=== PATIENT | female | born 1945 | race Caucasian/White ===

== ENCOUNTER → 2023-10-21 | Day surgery (SDC) | payer OTHER ==
[2023-10-20 10:49] LABS: Absolute Basophils 0.1 K/uL (0-0.5); Absolute Eosinophils 0.4 K/uL (0-0.5); Absolute Lymphocytes (CBC) 2.4 K/uL (0.7-4.9); Absolute Monocytes 0.9 K/uL (0.1-1.3); Absolute Neutrophil 4.3 K/uL (1.8-8.0); Eosinophils % 4.5 % (0-4.4); Hematocrit 38.5 % (36.0-45.0); Hemoglobin 12.6 g/dL (12.0-15.0); Lymphocytes % 29.9 % (15.3-44.8); MCH 31.6 pg (27.0-35.0); MCHC 32.8 g/dL (32.0-36.0); MCV 96.3 fL (80-100); MPV 7.7 fL (7.6-11.3); Monocytes % 11.6 % (3.3-12.3); Platelets 229 thou/uL (152-406); Red Cell Distribution Width 13.9 % (12.1-15.2)
[2023-10-20 10:58] LABS: PT Prothrombin Time 10.7 SECONDS (9.4-12.5); PTT, Activated Partial Thromb 29.1 SECONDS (24.3-36.9); Protime INR 0.95
[2023-10-20 11:03] LABS: Anion Gap 6.1 mEq/L (5.0-15.0); Potassium 4.1 mEq/L (3.5-5.1)
--- NOTE | 2023-10-20 11:39 | RAD REPORT ---
EXAM DESCRIPTION: [facility] Single [facility]10/20/2023 11:12 am CLINICAL HISTORY: PRE-OP. Hypertension COMPARISON: CHEST SINGLE VIEW dated 01/13/2014 TECHNIQUE: Portable AP view of the chest. FINDINGS: The lungs are clear. No pneumothorax or effusion. The cardiomediastinal contours are unre markable. IMPRESSION: No acute cardiopulmonary process.
[~2023-10-21] MED LIST: FENTANYL CITR 100 MCG/2 ML ONE; HEPA 1000U/500MLS 2,000 UNIT/1,000 ML BAG IV ONE; LIDOCAINE 1% 20 ML MDV ONE; MIDAZOLAM HCL 2 MG/2 ML INJ ONE; NA CHLORIDE 0.9% 500 ML ONE
[2023-10-21 12:03] VITALS: TEMP 97.5
[2023-10-21 17:32] VITALS: BP 131/53; O2SAT 96
--- NOTE | 2023-10-22 01:26 | OP ---
Date of Procedure: 10/21/2023 Surgeon: JEAN GONZALEZ Procedure Performed: Selective bilateral carotid angiogram. Indication: Carotid stenosis. Access: Right common femoral artery 4-Macanese, closed with manual pressure. Complications: None. Bleeding: Less than 50 mL. Anesthesia: Total sedation time was 45 minutes, used fentanyl and Versed. Description Of Procedure: After risks, benefits, and alternatives were explained, the patient agreed to the procedure and signed informed consent. The patient was brought into cardiac catheterization laboratory, prepped and draped in usual sterile fashion. Then, I accessed right common femoral arter y using micropuncture kit, ultrasound guidance, fluoroscopy, placed 4-Macanese [place] sheath, took 4- Macanese 3DRC catheter into the aortic root, engaged the right common carotid artery, took standard vie ws and then the left common carotid artery, took standard views and then removed the catheter and the sheath. Manual pressure was used for closure with good hemostasis. Findings: 1.Right common carotid artery proximally and mid is normal. Distally, there is 50% stenosis. The i nternal carotid has 50% to 60% proximal stenosis. The external carotid on the right is normal. 2.Left common carotid is normal. Left internal carotid is 20% and external carotid is normal. Conclusion: Moderate carotid stenosis especially on the right. Recommendation: Medical management. /MODL Voice ID: [id number] Report ID: [id number]
== END ==
LOC: CCL 11:46
PROVIDERS: ATTEND Internal Medicine
DX: I65.23 Occlusion and stenosis of bilateral carotid arteries (principal); I34.0 Nonrheumatic mitral (valve) insufficiency; I10 Essential (primary) hypertension; E78.2 Mixed hyperlipidemia; E03.9 Hypothyroidism, unspecified; Z87.891 Personal history of nicotine dependence; Z79.82 Long term (current) use of aspirin; Z79.899 Other long term (current) drug therapy; Z82.49 Family history of ischemic heart disease and other diseases of the circulatory system
CPT/HCPCS: 85025; 80048; 36415; 85610; 85730; 71045; 36222; 76937; C1893; J2001; J2250; J3010; J7040; 99152